=== PATIENT | male | born 1980 | race Caucasian/White ===

== ENCOUNTER 2017-06-22 12:19 | Emergency (ER) | payer MEDICARE ==
[2017-06-22] MEDS ORDERED: RX INFO: IV CONTRAST WAS GIVEN 1 EACH MISC MISCELLANE PRN (12:54)
[2017-06-22] MEDS ORDERED: SODIUM CHLORIDE 0.9% 1,000 ML IV STA ×2 (12:54)
[2017-06-22] MEDS ORDERED: PANTOPRAZOLE 40 MG/10 ML VIAL IVP STA (12:56)
[2017-06-22] MEDS ORDERED: MAG HYDROX/AL HYDROX/SIMETH 30 ML, HYOSCYAMINE ELIXIR 10 ML, CIMETIDINE HCL 300 MG, LID... PO STA ×4 (12:56)
[2017-06-22 13:31] LABS: Basophils % (A) 0 %; CH 29.7; CHCM 34.8; Eosinophils # (A) 0.1 k/uL (0-0.7); Eosinophils % (A) 2 %; HCT 40.8 % (39.0-53.0); HDW 2.79; HGB 13.8 gm/dL (13.0-17.5); Luc # (Auto) 0.13; Luc % (Auto) 2; Lymphocytes # (A) 1.5 k/uL (1.0-4.8); Lymphocytes % (A) 24 %; MCH 28.9 pg (25.0-35.0); MCHC 33.7 g/dL (31.0-37.0); MCV 85.8 fL (80.0-100.0); Mean Platelet Volume 6.9; Monocytes # (A) 0.4 k/uL (0-1.0); Monocytes % (A) 7 %; Neutrophils # (A) 3.9 k/uL (1.3-7.7); Neutrophils % (A) 64 %; RBC 4.76 m/uL (4.30-5.90); RDW 12.7 % (11.5-15.5); WBC 6.1 k/uL (3.8-10.6)
[2017-06-22 13:47] LABS: ALT 30 U/L (21-72); AST 20 U/L (17-59); Alkaline Phosphatase 60 U/L (38-126); Amylase 53 U/L (30-110); Anion Gap 9 mmol/L; Blood Urea Nitrogen 19 mg/dL (9-20); Calcium 9.5 mg/dL (8.4-10.2); Carbon Dioxide 27 mmol/L (22-30); Chloride 106 mmol/L (98-107); Glucose 65 mg/dL (74-99); Non-African American GFR(MDRD) >60 (>60 ml/min/1.73 sqM); Potassium 4.1 mmol/L (3.5-5.1); Sodium 142 mmol/L (137-145); Total Bilirubin 0.3 mg/dL (0.2-1.3); Total Protein 7.2 g/dL (6.3-8.2)
[2017-06-22 13:58] LABS: INR 1.1 (<1.2); Partial Thromboplastin Time 25.6 sec (22.0-30.0); Prothrombin Time 10.9 sec (9.0-12.0)
--- NOTE | 2017-06-22 14:17 | CT ---
EXAMINATION TYPE: CT abdomen pelvis w con DATE OF EXAM: 06/22/2017 COMPARISON: NONE HISTORY: 37-year-old male with epigastric pain. TECHNIQUE: Contiguous axial scanning of the abdomen and pelvis following administration of 100 ml Omn ipaque 300 IV contrast. Delayed images through the kidneys and coronal/sagittal reconstructions perf ormed. CT DLP: 1393 mGycm Automated exposure control for dose reduction was used. FINDINGS: The heart is normal size without pericardial effusion. Lung bases clear without pleural effusion. Small amount of focal fat along the anterior falciform ligament. Liver limits of normal in size at 17 .1 cm craniocaudal. No focal lesion seen. Portal venous system is patent. No biliary ductal dilatatio n. Prominent ingested debris within the stomach. Gallbladder, adrenal glands, kidneys, and pancreas appear within normal limits. Spleen is enlarged measuring 14.3 cm craniocaudal. Numerous nonenlarged and borderline to mildly enlarged mid mesenteric lymph nodes are present with mi ld cristina mesentery in this region, refer to axial image 32 through 37 for some call center support representative images. Lymph nodes measure up to 7 mm. No dilated small bowel, free fluid, or free air. There appears to be some fold thickening involving jejunal loops in the left upper abdomen. No dilated small bowel, free fluid, or free air. Normal appendix. Moderate stool distally in the colo n. No pericolonic inflammatory change. Mild circumference of bladder wall thickening may relate to un rabia distention. No abnormal fluid collection in the pelvis or pelvic lymphadenopathy seen. Bones: No osseous destructive process. IMPRESSION: 1. CRISTINA MESENTERY WITH NUMEROUS NONENLARGED AND BORDERLINE TO MILDLY ENLARGED MID MESENTERIC LYMPH N ODES. FINDINGS SUGGEST MESENTERIC PANNICULITIS AND PROBABLY CONCURRENT ENTERITIS GIVEN JEJUNAL FOLD T HICKENING. 2. MILD SPLENOMEGALY (14.3 CM). 3. MILD CIRCUMFERENTIAL BLADDER WALL THICKENING MAY RELATE TO UNDERDISTENTION. CORRELATE TO EXCLUDE C YSTITIS.
[2017-06-22 15:13] LABS: Appearance,Urine Clear (Clear); Bilirubin,Urine Negative (Negative); Glucose,Urine (UA) Negative (Negative); Ketones,Urine Negative (Negative); Leukocyte Esterase,Urine Negative (Negative); Nitrite,Urine Negative (Negative); Protein,Urine Negative (Negative); UA Billing (MACRO vs. MICRO) CHEM
[2017-06-22] MEDS ORDERED: methylPREDNISolone SOD SUCCI 125 MG/2 ML VIAL IV STA (15:35)
--- NOTE | 2017-06-22 15:41 | ED ---
Abdominal Pain HPI - General Chief Complaint: Abdominal Pain Stated Complaint: Abd Pain Time Seen by Provider: 06/22/17 12:50 Source: patient Mode of arrival: ambulatory Limitations: no limitations - History of Present Illness Initial Comments: This 37-year-old white male presents with a complaint of some diffuse abdominal pain. This is been present for the past several weeks. He denies any other symptomatology such as fever, chills, nausea, vomiting, diarrhea, or constipation. He states that it is been fairly persistent. He denies any previous similar incidents. He denies any urinary symptomatology such as frequency, urgency, or dysuria. He denies any other complaints or modifying factors. He denies any abdominal bloating. - Related Data Previous Rx's Medication Instructions Recorded predniSONE 20 mg PO BID #10 tab 06/22/17 traMADol HCl [Ultram] 50 - 100 mg PO Q6H PRN #15 tab 06/22/17 Allergies Allergy/AdvReac Type Severity Reaction Status Date / Time No Known Allergies Allergy Verified 06/22/17 12:43 Review of Systems ROS Statement: Those systems with pertinent positive or pertinent negative responses have been documented in the HPI. ROS Other: All systems not noted in ROS Statement are negative. Past Medical History Past Medical History: No Reported History History of Any Multi-Drug Resistant Organisms: None Reported Past Surgical History: No Surgical Hx Reported Past Psychological History: No Psychological Hx Reported Smoking Status: Never smoker Past Alcohol Use History: None Reported Past Drug Use History: None Reported General Exam - General Exam Comments Initial Comments: GENERAL: The patient is well nourished and well hydrated. VITAL SIGNS: Heart rate, blood pressure, respiratory rate reviewed as recorded in nurse's notes. EYES: Pupils are round and reactive. Extraocular movements are intact. No conjunctival / lid redness or swelling. ENT: No external evidence of injury, swelling, or ecchymosis. Airway is patent. Throat is clear. NECK: Nontender. No swelling or evidence of injury. No subcutaneous emphysema. Trachea is midline. No thyroid mass. HEART: Regular rate and rhythm. Good peripheral pulses. LUNGS/CHEST: Breath sounds clear and equal bilaterally. No rales, rhonchi, or wheezes. No ecchymosis, subcutaneous emphysema, or tenderness. ABDOMEN: there is mild diffuse abdominal tenderness.No palpable masses or organomegaly. No peritoneal signs. No abdominal wall swelling or ecchymosis. EXTREMITIES: No extremity tenderness. Normal muscle tone and function. No thoracolumbar tenderness. NEUROLOGIC: Sensation is grossly intact. Cranial nerve exam reveals face is symmetrical, tongue is midline, speech is clear. SKIN: No abrasions or ecchymosis is noted. No induration or masses noted. PSYCHIATRIC: Alert and oriented. Appropriate behavior and judgment. Limitations: no limitations Course Vital Signs 06/22/17 06/22/17 06/22/17 12:29 13:28 14:52 Temperature 97.4 F L Pulse Rate 80 77 63 Respiratory 16 16 16 Rate Blood Pressure 122/78 113/68 102/63 O2 Sat by Pulse 100 100 98 Oximetry Medical Decision Making - Medical Decision Making the patient was seen and examined. All diagnostics were reviewed. The laboratory overall is fairly unremarkable. The computed tomography scan of the abdomen and pelvis shows evidence of mesenteric panniculitis. There is a slight contracted bladder and is difficult to ascertain if there is any blood or wall thickening and radiologist recommends correlation with urinalysis. The urinalysis does not show any evidence of infection. Overall, it is felt as though he likely does have mesenteric panniculitis. Is given a dose of Solu- Medrol intravenously. He also was given a GI cocktail. He is in no significant distress upon recheck. He also received some Protonix. This felt as though is stable for discharge. Return parameters are discussed and will have him follow-up with surgery for further evaluation as well. - Lab Data Result diagrams: 06/22/17 13:19 06/22/17 13:19 Lab Results 06/22/17 06/22/17 06/22/17 Range/Units 13:19 13:19 13:19 WBC 6.1 (3.8-10.6) k/uL RBC 4.76 (4.30-5.90) m/uL Hgb 13.8 (13.0-17.5) gm/dL Hct 40.8 (39.0-53.0) % MCV 85.8 (80.0-100.0) fL MCH 28.9 (25.0-35.0) pg MCHC 33.7 (31.0-37.0) g/dL RDW 12.7 (11.5-15.5) % Plt Count 325 (150-450) k/uL Neutrophils % 64 % Lymphocytes % 24 % Monocytes % 7 % Eosinophils % 2 % Basophils % 0 % Neutrophils # 3.9 (1.3-7.7) k/uL Lymphocytes # 1.5 (1.0-4.8) k/uL Monocytes # 0.4 (0-1.0) k/uL Eosinophils # 0.1 (0-0.7) k/uL Basophils # 0.0 (0-0.2) k/uL PT 10.9 (9.0-12.0) sec INR 1.1 (<1.2) APTT 25.6 (22.0-30.0) sec Sodium 142 (137-145) mmol/L Potassium 4.1 (3.5-5.1) mmol/L Chloride 106 (98-107) mmol/L Carbon Dioxide 27 (22-30) mmol/L Anion Gap 9 mmol/L BUN 19 (9-20) mg/dL Creatinine 1.04 (0.66-1.25) mg/dL Est GFR (MDRD) Af Amer >60 (>60 ml/min/1.73 sqM) Est GFR (MDRD) Non-Af >60 (>60 ml/min/1.73 sqM) Glucose 65 L (74-99) mg/dL Calcium 9.5 (8.4-10.2) mg/dL Total Bilirubin 0.3 (0.2-1.3) mg/dL AST 20 (17-59) U/L ALT 30 (21-72) U/L Alkaline Phosphatase 60 (38-126) U/L Total Protein 7.2 (6.3-8.2) g/dL Albumin 4.2 (3.5-5.0) g/dL Amylase 53 (30-110) U/L Lipase 224 (23-300) U/L Urine Color Urine Appearance (Clear) Urine pH (5.0-8.0) Ur Specific [place] (1.001-1.035) Urine Protein (Negative) Urine Glucose (UA) (Negative) Urine Ketones (Negative) Urine Blood (Negative) Urine Nitrite (Negative) Urine Bilirubin (Negative) Urine Urobilinogen (<2.0) mg/dL Ur Leukocyte Esterase (Negative) 06/22/17 Range/Units 15:05 WBC (3.8-10.6) k/uL RBC (4.30-5.90) m/uL Hgb (13.0-17.5) gm/dL Hct (39.0-53.0) % MCV (80.0-100.0) fL MCH (25.0-35.0) pg MCHC (31.0-37.0) g/dL RDW (11.5-15.5) % Plt Count (150-450) k/uL Neutrophils % % Lymphocytes % % Monocytes % % Eosinophils % % Basophils % % Neutrophils # (1.3-7.7) k/uL Lymphocytes # (1.0-4.8) k/uL Monocytes # (0-1.0) k/uL Eosinophils # (0-0.7) k/uL Basophils # (0-0.2) k/uL PT (9.0-12.0) sec INR (<1.2) APTT (22.0-30.0) sec Sodium (137-145) mmol/L Potassium (3.5-5.1) mmol/L Chloride (98-107) mmol/L Carbon Dioxide (22-30) mmol/L Anion Gap mmol/L BUN (9-20) mg/dL Creatinine (0.66-1.25) mg/dL Est GFR (MDRD) Af Amer (>60 ml/min/1.73 sqM) Est GFR (MDRD) Non-Af (>60 ml/min/1.73 sqM) Glucose (74-99) mg/dL Calcium (8.4-10.2) mg/dL Total Bilirubin (0.2-1.3) mg/dL AST (17-59) U/L ALT (21-72) U/L Alkaline Phosphatase (38-126) U/L Total Protein (6.3-8.2) g/dL Albumin (3.5-5.0) g/dL Amylase (30-110) U/L Lipase (23-300) U/L Urine Color Yellow Urine Appearance Clear (Clear) Urine pH 6.0 (5.0-8.0) Ur Specific [place] 1.020 (1.001-1.035) Urine Protein Negative (Negative) Urine Glucose (UA) Negative (Negative) Urine Ketones Negative (Negative) Urine Blood Negative (Negative) Urine Nitrite Negative (Negative) Urine Bilirubin Negative (Negative) Urine Urobilinogen 2.0 (<2.0) mg/dL Ur Leukocyte Esterase Negative (Negative) Disposition Clinical Impression: Abdominal pain, Mesenteric panniculitis Disposition: HOME SELF-CARE Condition: Good Instructions: Abdominal Pain (ED) Additional Instructions: we saw you today for some abdominal pain which likely is due to mesenteric panniculitis. Please follow-up with the surgeon for further evaluation of this condition. Prescriptions: predniSONE 20 mg PO BID #10 tab traMADol HCl [Ultram] 50 - 100 mg PO Q6H PRN #15 tab PRN Reason: Pain Referrals: Joseph Connolly MD [Primary Care Provider] - 06/25/17 Jakob Ruiz DO [Doctor of Osteopathic Medicine] - 06/25/17 Time of Disposition: 15:40
[2017-06-22 15:49] VITALS: BP 106/67; PULSE 64; RESP 17; TEMP 91.7
== END 2017-06-22 15:56 | disposition home or self-care (01) ==
LOC: EC 12:19
DX: K65.4 Sclerosing mesenteritis (principal); Z53.29 Procedure and treatment not carried out because of patient's decision for other reasons
CPT/HCPCS: 36415; 80053; 82150; 83690; 85025; 85610; 85730; 81003; 74177; 99284; 96374; 96361; Q9967; C9113

== ENCOUNTER → 2017-11-23 | Outpatient (CLI) | payer MEDICARE ==
--- NOTE | 2017-11-23 13:33 | XR ---
Right knee HISTORY: Pain and swelling 3 views of the right knee Bone mineralization, joint spaces and alignment are maintained. No fracture or dislocation. Suprapate llar increased density is minimal. IMPRESSION: There may be minimal joint effusion.
== END | disposition home or self-care (01) ==
LOC: RADXRMAIN 11:33
PROVIDERS: ATTEND Family Medicine
DX: M25.561 Pain in right knee (principal)

== ENCOUNTER 2018-11-19 20:52 | Emergency (ER) | payer MEDICARE ==
[2018-11-19 20:57] VITALS: BP 126/78; RESP 20; TEMP 98.8
[2018-11-19] MEDS ORDERED: IPRATROPIUM-ALBUTEROL 3 ML NEB INHALATION STA (21:12)
--- NOTE | 2018-11-19 21:29 | ED ---
General Adult HPI - General Chief complaint: Upper Respiratory Infection Stated complaint: Cough Time Seen by Provider: 11/19/18 20:58 Source: patient, family, RN notes reviewed Mode of arrival: ambulatory Limitations: no limitations - History of Present Illness Initial comments: 38-year-old male presents to the emergency department for a chief complaint of cough 3 weeks. Patient states that when this started he had a fever with body aches cough and congestion. Patient states the body aches and fever have resolved however patient still has a dry cough and is congested. Patient states he only feels short of breath when he gets into a coughing fit. Patient denies chest pain. Patient denies any history of blood clots or recent travel. No recent surgeries. No recent fevers. Patient denies smoking history. Patient has no other complaints at this time including chest pain, abdominal pain, nausea or vomiting, headache, or visual changes. - Related Data Previous Rx's Medication Instructions Recorded predniSONE 20 mg PO BID #10 tab 06/22/17 traMADol HCl [Ultram] 50 - 100 mg PO Q6H PRN #15 tab 06/22/17 Albuterol Inhaler [Ventolin Hfa 1 - 2 puff INHALATION Q6HR PRN #1 11/19/18 Inhaler] inhaler Azithromycin [Zithromax Z-pack] 250 mg PO DIRECTED #6 tab 11/19/18 Benzonatate [Tessalon Perles] 200 mg PO Q8H PRN #20 capsule 11/19/18 predniSONE 50 mg PO DAILY #5 tablet 11/19/18 Allergies Allergy/AdvReac Type Severity Reaction Status Date / Time No Known Allergies Allergy Verified 11/19/18 20:57 Review of Systems ROS Statement: Those systems with pertinent positive or pertinent negative responses have been documented in the HPI. ROS Other: All systems not noted in ROS Statement are negative. Past Medical History Past Medical History: No Reported History History of Any Multi-Drug Resistant Organisms: None Reported Past Surgical History: Hernia Repair Past Psychological History: No Psychological Hx Reported Smoking Status: Never smoker Past Alcohol Use History: None Reported Past Drug Use History: None Reported General Exam Limitations: no limitations General appearance: alert, in no apparent distress Head exam: Present: atraumatic, normocephalic, normal inspection Eye exam: Present: normal appearance, PERRL, EOMI. Absent: scleral icterus, conjunctival injection, periorbital swelling ENT exam: Present: normal exam, normal oropharynx, mucous membranes moist, TM's normal bilaterally, normal external ear exam, other (mild nasal congestion noted) Neck exam: Present: normal inspection. Absent: tenderness, meningismus, lymphadenopathy Respiratory exam: Present: normal lung sounds bilaterally, chest wall tenderness (minimal chest wall tenderness). Absent: respiratory distress (patient laying comfortably in bed, no evidence of distress whatsoever), wheezes (minimal wheeze present), rales, rhonchi, stridor Cardiovascular Exam: Present: regular rate, normal rhythm, normal heart sounds. Absent: systolic murmur, diastolic murmur, rubs, gallop, clicks GI/Abdominal exam: Present: soft, normal bowel sounds. Absent: distended, tenderness, guarding, rebound, rigid Neurological exam: Present: alert, oriented X3, CN II-XII intact Psychiatric exam: Present: normal affect, normal mood Course Vital Signs 11/19/18 11/19/18 11/19/18 20:54 21:27 21:36 Temperature 98.8 F Pulse Rate 92 90 91 Respiratory 20 Rate Blood Pressure 126/78 O2 Sat by Pulse 100 Oximetry Medical Decision Making - Medical Decision Making 38-year-old male presents to the emergency department for a chief complaint of cough. This has been ongoing for 3 weeks. Started with fever chills body aches congestion and cough. Patient states now he just has congestion and cough and fevers and body aches have resolved. Patient states he is a never smoker. Vitals are stable. Patient is well-appearing on exam. Patient did receive a breathing treatment, feeling significantly improved. Chest x-ray negative for acute process. Influenza is negative. At this time patient likely has a bronchitis. Patient will be treated with a Z-Milan as well as steroids and albuterol inhaler as the breathing treatment did help him significantly. He will also be given Tessalon Perles. He will follow up with primary care. He'll return here if he has any worsening symptoms. - Lab Data Lab Results 11/19/18 Range/Units 21:21 Influenza Type A RNA Not Detected (Not Detectd) Influenza Type B (PCR) Not Detected (Not Detectd) Disposition Clinical Impression: Bronchitis Disposition: HOME SELF-CARE Condition: Good Instructions (If sedation given, give patient instructions): Acute Bronchitis (ED) Additional Instructions: Please take antibiotic and steroid as directed. Please use Tessalon Perles as needed for cough. Use inhaler as well as needed. You may also buy over-the-c ounter cough medicine. Follow up with primary care in 1-2 days. Return here if you have any worsening symptoms. Prescriptions: predniSONE 50 mg PO DAILY #5 tablet Benzonatate [Tessalon Perles] 200 mg PO Q8H PRN #20 capsule PRN Reason: Cough Albuterol Inhaler [Ventolin Hfa Inhaler] 1 - 2 puff INHALATION Q6HR PRN #1 inhaler PRN Reason: Cough Azithromycin [Zithromax Z-pack] 250 mg PO DIRECTED #6 tab Is patient prescribed a controlled substance at d/c from ED?: No Referrals: Vinayak Salcido MD [Primary Care Provider] - 1-2 days Time of Disposition: 22:40
[2018-11-19 21:36] VITALS: PULSE 91
--- NOTE | 2018-11-19 22:03 | XR ---
EXAMINATION TYPE: XR chest 2V DATE OF EXAM: 11/19/2018 COMPARISON: NONE HISTORY: Respiratory infection TECHNIQUE: Frontal and lateral views of the chest are obtained. FINDINGS: Heart and mediastinum are normal. Lungs are clear. Diaphragm is normal. Bony thorax appear s normal. IMPRESSION: Normal chest
== END 2018-11-19 22:57 | disposition home or self-care (01) ==
LOC: EC 20:52
DX: J40 Bronchitis, not specified as acute or chronic (principal)
CPT/HCPCS: 71046; 87502; 94640; 99284

== ENCOUNTER 2019-01-28 20:57 | Emergency (ER) | payer MEDICARE ==
[2019-01-28 21:06] VITALS: TEMP 97.7
[2019-01-28] MEDS ORDERED: SODIUM CHLORIDE 0.9% 1,000 ML IV STA (21:08)
[2019-01-28] MEDS ORDERED: IPRATROPIUM-ALBUTEROL 3 ML NEB INHALATION STA (21:08)
--- NOTE | 2019-01-28 21:23 | ED ---
SOB HPI - General Chief Complaint: Shortness of Breath Stated Complaint: JHONNY/Fall Time Seen by Provider: 01/28/19 21:07 Source: patient, RN notes reviewed, old records reviewed Mode of arrival: ambulatory Limitations: no limitations - History of Present Illness Initial Comments: This is a 38-year-old male the ER for evaluation resents today for evaluation status post fall fall with rib pain left-sided rib pain more also some right- sided rib pain. Worsening takes a deep breath worse when he coughs. Shortness of breath is recently progressed over the last 2 days and has had increasing cough or congestion. No fevers. Patient denies any other complaints MD Complaint: shortness of breath, cough, pain with inspiration (Ribs rib pain is worse) -: days(s) Severity: mild Severity scale (1-10): 2 Quality: aching, sharp (When he takes a deep breath or coughs) Consistency: intermittent Improves With: nothing Worsens With: nothing Context: trauma/injury Associated Symptoms: chest pain, pain with inspiration, sputum production Treatments Prior to Arrival: none - Related Data Previous Rx's Medication Instructions Recorded Albuterol Sulfate [Proair Hfa] 1 - 2 puff INHALATION Q4H PRN #1 01/28/19 inhaler Azithromycin [Zithromax Z-pack] 0 mg PO DIRECTED #1 pack 01/28/19 predniSONE 50 mg PO DAILY #5 tab 01/28/19 Allergies Allergy/AdvReac Type Severity Reaction Status Date / Time No Known Allergies Allergy Verified 01/28/19 21:24 Review of Systems ROS Statement: Those systems with pertinent positive or pertinent negative responses have been documented in the HPI. ROS Other: All systems not noted in ROS Statement are negative. Past Medical History Past Medical History: No Reported History History of Any Multi-Drug Resistant Organisms: None Reported Past Surgical History: Hernia Repair Past Psychological History: No Psychological Hx Reported Smoking Status: Never smoker Past Alcohol Use History: None Reported Past Drug Use History: None Reported General Exam Limitations: no limitations General appearance: alert, in no apparent distress Head exam: Present: atraumatic, normocephalic, normal inspection Eye exam: Present: normal appearance, PERRL, EOMI. Absent: scleral icterus, conjunctival injection, periorbital swelling ENT exam: Present: normal exam, mucous membranes moist Neck exam: Present: normal inspection. Absent: tenderness, meningismus, lymphadenopathy Respiratory exam: Present: normal lung sounds bilaterally. Absent: respiratory distress, wheezes, rales, rhonchi, stridor Cardiovascular Exam: Present: regular rate, normal rhythm, normal heart sounds. Absent: systolic murmur, diastolic murmur, rubs, gallop, clicks GI/Abdominal exam: Present: soft, normal bowel sounds. Absent: distended, tenderness, guarding, rebound, rigid Extremities exam: Present: normal inspection, full ROM, normal capillary refill. Absent: tenderness, pedal edema, joint swelling, calf tenderness Back exam: Present: normal inspection Neurological exam: Present: alert, oriented X3, CN II-XII intact Psychiatric exam: Present: normal affect, normal mood Skin exam: Present: warm, dry, intact, normal color. Absent: rash Course Vital Signs 01/28/19 01/28/19 01/28/19 21:01 21:06 21:39 Temperature 97.7 F Pulse Rate 77 73 Respiratory 20 18 16 Rate Blood Pressure 136/82 O2 Sat by Pulse 96 Oximetry 01/28/19 01/28/19 01/28/19 21:48 22:41 23:02 Temperature Pulse Rate 71 74 Respiratory 16 18 18 Rate Blood Pressure 108/67 O2 Sat by Pulse 97 Oximetry Medical Decision Making - Medical Decision Making 38 male to ER status post fall and rib pain. Since patient is a difficult breathing. presents for persistent shortness of breath. CT is negative here in the ER. Improvement with breathing treatments. Patient can be discharged home - Lab Data Result diagrams: 01/28/19 21:30 01/28/19 21:30 Lab Results 01/28/19 01/28/19 01/28/19 Range/Units 21:30 21:30 21:30 WBC 6.3 (3.8-10.6) k/uL RBC 4.46 (4.30-5.90) m/uL Hgb 12.6 L (13.0-17.5) gm/dL Hct 37.8 L (39.0-53.0) % MCV 84.7 (80.0-100.0) fL MCH 28.3 (25.0-35.0) pg MCHC 33.4 (31.0-37.0) g/dL RDW 13.5 (11.5-15.5) % Plt Count 289 (150-450) k/uL Neutrophils % 66 % Lymphocytes % 21 % Monocytes % 8 % Eosinophils % 2 % Basophils % 1 % Neutrophils # 4.2 (1.3-7.7) k/uL Lymphocytes # 1.3 (1.0-4.8) k/uL Monocytes # 0.5 (0-1.0) k/uL Eosinophils # 0.1 (0-0.7) k/uL Basophils # 0.0 (0-0.2) k/uL PT 10.7 (9.0-12.0) sec INR 1.0 (<1.2) APTT 25.0 (22.0-30.0) sec D-Dimer 0.33 (<0.60) mg/L FEU Sodium 142 (137-145) mmol/L Potassium 3.9 (3.5-5.1) mmol/L Chloride 107 (98-107) mmol/L Carbon Dioxide 26 (22-30) mmol/L Anion Gap 9 mmol/L BUN 20 (9-20) mg/dL Creatinine 1.06 (0.66-1.25) mg/dL Est GFR (CKD-EPI)AfAm >90 (>60 ml/min/1.73 sqM) Est GFR (CKD-EPI)NonAf 90 (>60 ml/min/1.73 sqM) Glucose 88 (74-99) mg/dL Calcium 9.4 (8.4-10.2) mg/dL Magnesium 2.1 (1.6-2.3) mg/dL Total Bilirubin 0.4 (0.2-1.3) mg/dL AST 18 (17-59) U/L ALT 21 (21-72) U/L Alkaline Phosphatase 58 (38-126) U/L Troponin I (0.000-0.034) ng/mL NT-Pro-B Natriuret Pep pg/mL Total Protein 7.0 (6.3-8.2) g/dL Albumin 4.1 (3.5-5.0) g/dL 01/28/19 01/28/19 Range/Units 21:30 21:30 WBC (3.8-10.6) k/uL RBC (4.30-5.90) m/uL Hgb (13.0-17.5) gm/dL Hct (39.0-53.0) % MCV (80.0-100.0) fL MCH (25.0-35.0) pg MCHC (31.0-37.0) g/dL RDW (11.5-15.5) % Plt Count (150-450) k/uL Neutrophils % % Lymphocytes % % Monocytes % % Eosinophils % % Basophils % % Neutrophils # (1.3-7.7) k/uL Lymphocytes # (1.0-4.8) k/uL Monocytes # (0-1.0) k/uL Eosinophils # (0-0.7) k/uL Basophils # (0-0.2) k/uL PT (9.0-12.0) sec INR (<1.2) APTT (22.0-30.0) sec D-Dimer (<0.60) mg/L FEU Sodium (137-145) mmol/L Potassium (3.5-5.1) mmol/L Chloride (98-107) mmol/L Carbon Dioxide (22-30) mmol/L Anion Gap mmol/L BUN (9-20) mg/dL Creatinine (0.66-1.25) mg/dL Est GFR (CKD-EPI)AfAm (>60 ml/min/1.73 sqM) Est GFR (CKD-EPI)NonAf (>60 ml/min/1.73 sqM) Glucose (74-99) mg/dL Calcium (8.4-10.2) mg/dL Magnesium (1.6-2.3) mg/dL Total Bilirubin (0.2-1.3) mg/dL AST (17-59) U/L ALT (21-72) U/L Alkaline Phosphatase (38-126) U/L Troponin I <0.012 (0.000-0.034) ng/mL NT-Pro-B Natriuret Pep 18 pg/mL Total Protein (6.3-8.2) g/dL Albumin (3.5-5.0) g/dL - EKG Data -: EKG Interpreted by Me (EKG shows sinus at [facility] sec, SD 146, QRS 100, QTc 470) - Radiology Data Radiology results: report reviewed (CTA chest is negative for acute disease), image reviewed Disposition Clinical Impression: Rib contusion, Acute bronchitis Disposition: HOME SELF-CARE Instructions (If sedation given, give patient instructions): Acute Bronchitis (ED) Prescriptions: predniSONE 50 mg PO DAILY #5 tab Albuterol Sulfate [Proair Hfa] 1 - 2 puff INHALATION Q4H PRN #1 inhaler PRN Reason: Shortness Of Breath Azithromycin [Zithromax Z-pack] 0 mg PO DIRECTED #1 pack Is patient prescribed a controlled substance at d/c from ED?: No Referrals: Vinayak Salcido MD [Primary Care Provider] - 1-2 days
[2019-01-28 21:49] LABS: Basophils % (A) 1 %; Eosinophils # (A) 0.1 k/uL (0-0.7); Eosinophils % (A) 2 %; HCT 37.8 % (39.0-53.0); HGB 12.6 gm/dL (13.0-17.5); Lymphocytes # (A) 1.3 k/uL (1.0-4.8); Lymphocytes % (A) 21 %; MCH 28.3 pg (25.0-35.0); MCHC 33.4 g/dL (31.0-37.0); MCV 84.7 fL (80.0-100.0); Mean Platelet Volume 7.9; Monocytes # (A) 0.5 k/uL (0-1.0); Monocytes % (A) 8 %; Neutrophils # (A) 4.2 k/uL (1.3-7.7); Neutrophils % (A) 66 %; Platelet Count 289 k/uL (150-450); RBC 4.46 m/uL (4.30-5.90); RDW 13.5 % (11.5-15.5); WBC 6.3 k/uL (3.8-10.6)
[2019-01-28 21:59] LABS: ALT 21 U/L (21-72); AST 18 U/L (17-59); African American GFR (CKD) >90 (>60 ml/min/1.73 sqM); Albumin 4.1 g/dL (3.5-5.0); Alkaline Phosphatase 58 U/L (38-126); Anion Gap 9 mmol/L; Blood Urea Nitrogen 20 mg/dL (9-20); Calcium 9.4 mg/dL (8.4-10.2); Carbon Dioxide 26 mmol/L (22-30); Chloride 107 mmol/L (98-107); Glucose 88 mg/dL (74-99); Magnesium 2.1 mg/dL (1.6-2.3); Potassium 3.9 mmol/L (3.5-5.1); Sodium 142 mmol/L (137-145); Total Bilirubin 0.4 mg/dL (0.2-1.3)
[2019-01-28 22:03] LABS: D-Dimer 0.33 mg/L FEU (<0.60); Prothrombin Time 10.7 sec (9.0-12.0)
--- NOTE | 2019-01-28 22:23 | CT ---
EXAM: CT Angiography Chest With Intravenous Contrast CLINICAL HISTORY: Pain TECHNIQUE: Axial computed tomographic angiography images of the chest with intravenous contrast using pulmonary embolism protocol. CTDI is 0.085, 0. 085, 1.5, 1.5, 9.3 mGy and DLP is 355 mGy-cm. This CT exam was performed using one or more of the following dose reduction techniques: automated exposure control, adjustment of the mA and/or kV according to patient size, and/or use of iterative reconstruction technique. MIP reconstructed images were created and reviewed. COMPARISON: No relevant prior studies available. FINDINGS: Pulmonary arteries: No evidence of pulmonary embolus. Aorta: No acute findings. No thoracic aortic aneurysm. Lungs: Patchy ground glass opacities within the upper lobes and right lower lobe. Findings are suggestive of inflammatory or infectious process. Pleural space: Unremarkable. No significant effusion. No pneumothorax. Heart: Unremarkable. No cardiomegaly. No significant pericardial effusion. No evidence of RV dysfunction. Bones/joints: No acute fracture. No dislocation. Soft tissues: Unremarkable. Lymph nodes: Unremarkable. No enlarged lymph nodes. Spleen: Question borderline splenomegaly. IMPRESSION: 1. No evidence of pulmonary embolus. 2. Patchy ground glass opacities within the upper lobes and right lower lobe. Findings are suggestive of inflammatory or infectious process. 3. Question borderline splenomegaly.
[2019-01-28 22:44] VITALS: BP 108/67; PULSE 74; RESP 18
[2019-01-28] MEDS ORDERED: DEXAMETHASONE SOD PHOSPHATE 10 MG/ML 1 ML VIAL IV STA (22:46)
[2019-01-28] MEDS ORDERED: AZITHROMYCIN 500 MG TAB PO STA (22:47)
--- NOTE | 2019-01-30 07:21 | CDI ---
Documentation Clarification OP Dear Ramez JUÁREZ, DO Please do addendum to ED report for missing HPI and Physical examination. Thank you, Rochelle Duggan Machining And Assembly Supervisor If you have any questions, please contact Digital Editor at [phone] [facility]
== END 2019-01-28 23:03 | disposition home or self-care (01) ==
LOC: EC 20:57
DX: S20.219A Contusion of unspecified front wall of thorax, initial encounter (principal); J20.9 Acute bronchitis, unspecified; W10.9XXA Fall (on) (from) unspecified stairs and steps, initial encounter
CPT/HCPCS: 99285; 96374; 96361; 36415; 94640; 93005; 85379; 83880; 80053; 83735; 84484; 85025; 85610; 85730; 71275; J1100; Q9967

== ENCOUNTER 2019-02-26 01:19 | Emergency (ER) | payer MEDICARE ==
[2019-02-26 01:30] VITALS: BP 130/90; PULSE 65; RESP 20; TEMP 97.7
[2019-02-26] MEDS ORDERED: PROPARACAINE 0.5% OPHTH DROPS 15 ML BTL RIGHT EYE STA (01:33)
[2019-02-26] MEDS ORDERED: TOBRAMYCIN 0.3% OPHTH OINT 3.5 GM TUBE RIGHT EYE STA (01:42)
--- NOTE | 2019-02-26 01:44 | ED ---
Eye Problem HPI - General Chief complaint: Eye Problems Stated complaint: eye problem Time Seen by Provider: 02/26/19 01:33 Source: patient, family Mode of arrival: ambulatory Limitations: no limitations - History of Present Illness Initial comments: 38-year-old male patient presents to the emergency department today for evaluation of right eye discomfort. Patient states he was sitting outside at a fire when he felt something go into his eye. Patient states that he attempted to flush the eye. States he took a shower. States nothing has been working. Patient states he still feels something is in there. Denies any blurred or double vision from this. Denies any drainage from the eye. Denies any fever, chills, or headache. Does not wear contacts or glasses. Patient denies any recent rash, fever, chills, shortness breath, chest pain, abdominal pain, nausea, vomiting, diarrhea, constipation, back pain, numbness, tingling, dizziness, weakness, hematuria, dysuria, urinary urgency, urinary frequency, or any other complaints. - Related Data Previous Rx's Medication Instructions Recorded Albuterol Sulfate [Proair Hfa] 1 - 2 puff INHALATION Q4H PRN #1 01/28/19 inhaler Azithromycin [Zithromax Z-pack] 0 mg PO DIRECTED #1 pack 01/28/19 predniSONE 50 mg PO DAILY #5 tab 01/28/19 Allergies Allergy/AdvReac Type Severity Reaction Status Date / Time No Known Allergies Allergy Verified 02/26/19 01:30 Review of Systems ROS Statement: Those systems with pertinent positive or pertinent negative responses have been documented in the HPI. ROS Other: All systems not noted in ROS Statement are negative. Past Medical History Past Medical History: No Reported History History of Any Multi-Drug Resistant Organisms: None Reported Past Surgical History: Hernia Repair Past Psychological History: No Psychological Hx Reported Smoking Status: Never smoker Past Alcohol Use History: None Reported Past Drug Use History: None Reported General Exam Limitations: no limitations General appearance: alert, in no apparent distress, other (This is a well- developed, well-nourished adult male patient in no acute distress. Vital signs upon presentation are temperature 97.7F, pulse 65, respirations 20, blood pressure 130/90, pulse ox 99% on room air.) Eye exam: Present: PERRL, EOMI, conjunctival injection (Mild right-sided conjunctival injection), other (Fluorescein stain with Wood's lamp examination was performed and showed no evidence for corneal abrasion or conjunctival abrasion. Eye was thoroughly inspected and showed no evidence for foreign body. Lids were everted.). Absent: normal appearance, scleral icterus, periorbital swelling ENT exam: Present: normal exam, normal oropharynx, mucous membranes moist Respiratory exam: Present: normal lung sounds bilaterally. Absent: respiratory distress, wheezes, rales, rhonchi, stridor Cardiovascular Exam: Present: regular rate, normal rhythm, normal heart sounds. Absent: systolic murmur, diastolic murmur, rubs, gallop, clicks Neurological exam: Present: alert, oriented X3, CN II-XII intact Psychiatric exam: Present: normal affect, normal mood Skin exam: Present: warm, dry, intact, normal color. Absent: rash Course Vital Signs 02/26/19 01:25 Temperature 97.7 F Pulse Rate 65 Respiratory 20 Rate Blood Pressure 130/90 O2 Sat by Pulse 99 Oximetry Medical Decision Making - Medical Decision Making Of right eye discomfort and burning. Physical examination did reveal mild conjunctival injection. Fluorescein stain with Wood's lamp examination was performed and showed no evidence for conjunctival or corneal abrasion. Eye was thoroughly inspected and showed no evidence for foreign body. It flushed the eye with normal saline. Patient did have complete resolution of symptoms with instillation of proparacaine. Patient will be given tobramycin ointment to apply 4 times daily. He is instructed to follow-up with assistant strength coach for recheck Wednesday if symptoms persist. Is instructed to follow-up with his primary care physician for recheck in 1-2 days. Return parameters were discussed in detail. He verbalizes understanding and agrees with this plan. Disposition Clinical Impression: Foreign body of right eye Disposition: HOME SELF-CARE Condition: Good Instructions (If sedation given, give patient instructions): Tobramycin (Into the eye), Eye Foreign Body (ED) Additional Instructions: Use tobramycin ointment 4 times daily while awake. Follow-up with the assistant strength coach on Wednesday for symptoms are not improved. Return to the emergency department immediately for any new, worsening, or concerning symptoms. Is patient prescribed a controlled substance at d/c from ED?: No Referrals: Vinayak Salcido MD [Primary Care Provider] - 1-2 days Jyoti Iglesias MD [STAFF PHYSICIAN] - 1-2 days Time of Disposition: 01:43
== END 2019-02-26 01:54 | disposition home or self-care (01) ==
LOC: EC 01:19
DX: T15.91XA Foreign body on external eye, part unspecified, right eye, initial encounter (principal)
CPT/HCPCS: 99283

== ENCOUNTER 2019-02-26 08:04 | Emergency (ER) | payer MEDICARE ==
[2019-02-26 08:15] VITALS: TEMP 97
[2019-02-26] MEDS ORDERED: PROPARACAINE 0.5% OPHTH DROPS 15 ML BTL RIGHT EYE STA (08:18)
--- NOTE | 2019-02-26 11:11 | ED ---
General Adult HPI - General Chief complaint: Eye Problems Stated complaint: Eye Problems Time Seen by Provider: 02/26/19 08:15 Source: patient, RN notes reviewed, old records reviewed Mode of arrival: ambulatory Limitations: no limitations - History of Present Illness Initial comments: 38-year-old male patient, no pertinent past medical history presents to ED with chief complaint of right eye pain. Patient reports that yesterday he was of anxiety and felt something scratch. Patient reports that he has had a stinging pain in the lateral aspect of his right eye. Pt reports that he has been rubbing his eyes. Patient is not a contact lens user, reports that he was seen in this facility yesterday and placed on tobramycin eyedrops. Patient states that his vision is at baseline. Patient arrived in the 60s still expressing pain. Patient denies any other complaints at this time. Last tetanus shot last year. Systemic: Pt denies fatigue, fever/chills, rash. Pt denies weakness, night sweats, weight loss. Neuro: Pt denies headache, visual disturbances, syncope or pre-syncope. HEENT: Pt denies otalgia, rhinorrhea, pharyngitis or notable lymphadenopathy. Cardiopulmonary: Pt denies chest pain, SOB, heart palpitations, dyspnea on exertion. Abdominal/GI: Pt denies abdominal pain, n/v/d. : Pt denies dysuria, burning w/ urination, frequency/urgency. Denies new onset urinary or bowel incontinence. MSK: Pt denies myalgia, loss of strength or function in extremities. Neuro: Pt denies new onset weakness, paresthesias. - Related Data Previous Rx's Medication Instructions Recorded Albuterol Sulfate [Proair Hfa] 1 - 2 puff INHALATION Q4H PRN #1 01/28/19 inhaler Azithromycin [Zithromax Z-pack] 0 mg PO DIRECTED #1 pack 01/28/19 predniSONE 50 mg PO DAILY #5 tab 01/28/19 Allergies Allergy/AdvReac Type Severity Reaction Status Date / Time No Known Allergies Allergy Verified 02/26/19 08:15 Review of Systems ROS Statement: Those systems with pertinent positive or pertinent negative responses have been documented in the HPI. ROS Other: All systems not noted in ROS Statement are negative. Past Medical History Past Medical History: No Reported History History of Any Multi-Drug Resistant Organisms: None Reported Past Surgical History: Hernia Repair Past Psychological History: No Psychological Hx Reported Smoking Status: Never smoker Past Alcohol Use History: None Reported Past Drug Use History: None Reported General Exam - General Exam Comments Initial Comments: Constitutional: NAD, AOX3, Pt has pleasant affect. HEENT: NC/AT, trachea midline, neck supple, no lymphadenopathy. Posterior pharynx non erythematous, without exudates. External ears appear normal, without discharge. Mucous membranes moist. Eyes PERRLA, EOM intact. There is no scleral icterus. No pallor noted. IOP is average of 20 bilaterally. Mild amount of injection to lateral canthus of right eye. Flouresecne stain revealed small corneal abrasion at 9:00. No foreign body noted. Cardiopulmonary: RRR, no murmurs, rubs or gallops, no JVD noted. Lungs CTAB in anterior and posterior alarcon. No peripheral edema. Abdominal exam: Abdomen soft and non-distended. Abdomen non-tender to palpation in all 4 quadrants. Bowel sounds active in LLQ. No hepatosplenomegaly. No ecchymosis Neuro: CN II-XII grossly intact. No nuchal rigidity. No raccon eyes, no hernandez sign, no hemotympanum. No cervical spinal tenderness. MSK: No posterior calf tenderness bilaterally, homans sign negative bilaterally. Posterior tibialis and radial pulse +2 bilaterally. Sensation intact in upper and lower extremities. Full active ROM in upper and lower extremities, 5/5 stregnth. Limitations: no limitations Course Vital Signs 02/26/19 08:13 Temperature 97 F L Pulse Rate 56 L Respiratory 16 Rate Blood Pressure 112/86 O2 Sat by Pulse 98 Oximetry Medical Decision Making - Medical Decision Making 38-year-old male patient, no pertinent past medical history presents ED chief complaint of right eye pain. Patient's vital signs stable, afebrile. Physical exam revealed a small corneal abrasion. Patient be continued on tobramycin eyedrops. Patient will follow-up with ophthalmology tomorrow. Return to ER if condition worsens. Case discussed with Dr. Jeronimo Disposition Clinical Impression: Corneal abrasion Disposition: HOME SELF-CARE Condition: Stable Instructions (If sedation given, give patient instructions): Corneal Abrasion (ED) Additional Instructions: Patient to adhere to previously discussed treatment plan and will take medication(s) as directed. Patient to follow up with PCP in 1-2 days. Patient to return to ED if symptoms do not improve. Continue to use tobramycin eyedrops. Follow-up with transport analyst tomorrow. Return to ER if condition worsens. Is patient prescribed a controlled substance at d/c from ED?: No Referrals: Vinayak Salcido MD [Primary Care Provider] - 1-2 days Jyoti Iglesias MD [STAFF PHYSICIAN] - 1-2 days
[2019-02-26 11:40] VITALS: BP 100/60; PULSE 68; RESP 18
== END 2019-02-26 11:43 | disposition home or self-care (01) ==
LOC: EC 08:04
DX: S05.01XA Injury of conjunctiva and corneal abrasion without foreign body, right eye, initial encounter (principal); X58.XXXA Exposure to other specified factors, initial encounter
CPT/HCPCS: 99283

== ENCOUNTER 2019-08-25 20:48 | Emergency (ER) | payer MEDICARE ==
[2019-08-25 20:55] VITALS: BP 147/99; PULSE 83; RESP 18; TEMP 97.7
[2019-08-25] MEDS ORDERED: BUPIVACAINE (PF) 0.5% 30 ML VIAL MISCELLANE STA (21:46)
[2019-08-25] MEDS ORDERED: ACET/COD 300 MG/30 MG STARTER PACK 6 TAB BTL PO STA (21:46)
[2019-08-25] MEDS ORDERED: PENICILLIN VK 500MG STARTER 4 TAB BTL PO STA (21:46)
--- NOTE | 2019-08-25 22:19 | ED ---
General Adult HPI - General Chief complaint: Dental/Oral Stated complaint: Dental pain Time Seen by Provider: 08/25/19 20:58 Source: patient Mode of arrival: ambulatory Limitations: no limitations - History of Present Illness Initial comments: 39-year-old male patient presents to the emergency department today for evaluation of right upper dental pain. Patient states he does have a bad taste to the area. States the pain started 12 hours ago. He is reporting as a 10 out of 10 on the pain scale. Denies any trismus or difficulty swallowing. Denies fever or chills. Denies any facial swelling. Patient is unsure if he has dental insurance. - Related Data Previous Rx's Medication Instructions Recorded Albuterol Sulfate [Proair Hfa] 1 - 2 puff INHALATION Q4H PRN #1 01/28/19 inhaler Azithromycin [Zithromax Z-pack] 0 mg PO DIRECTED #1 pack 01/28/19 predniSONE 50 mg PO DAILY #5 tab 01/28/19 Ibuprofen [Motrin] 600 mg PO Q8HR PRN #30 tab 08/25/19 Penicillin V Potassium [Pen Vee K] 500 mg PO Q6H #40 tablet 08/25/19 Allergies Allergy/AdvReac Type Severity Reaction Status Date / Time No Known Allergies Allergy Verified 08/25/19 20:55 Review of Systems ROS Statement: Those systems with pertinent positive or pertinent negative responses have been documented in the HPI. ROS Other: All systems not noted in ROS Statement are negative. Past Medical History Past Medical History: No Reported History History of Any Multi-Drug Resistant Organisms: None Reported Past Surgical History: Hernia Repair Past Psychological History: No Psychological Hx Reported Smoking Status: Never smoker Past Alcohol Use History: None Reported Past Drug Use History: None Reported General Exam Limitations: no limitations General appearance: alert, in no apparent distress, other (This is a well- developed, well-nourished adult male patient in no acute distress. Vital signs upon presentation are temperature 97.7F, pulse 83, respirations 18, blood pressure 147/99, pulse ox 98% on room air.) Eye exam: Present: normal appearance, PERRL, EOMI. Absent: scleral icterus, conjunctival injection, periorbital swelling ENT exam: Present: normal oropharynx, mucous membranes moist, other (Broken tooth #1, exposed pulp. No surrounding gingival erythema or hyperplasia. No evidence of drainable abscess.) Neck exam: Absent: lymphadenopathy Respiratory exam: Present: normal lung sounds bilaterally. Absent: respiratory distress, wheezes, rales, rhonchi, stridor Cardiovascular Exam: Present: regular rate, normal rhythm, normal heart sounds. Absent: systolic murmur, diastolic murmur, rubs, gallop, clicks Neurological exam: Present: alert, oriented X3, CN II-XII intact Psychiatric exam: Present: normal affect, normal mood Skin exam: Present: warm, dry, intact, normal color. Absent: rash Course Vital Signs 08/25/19 20:54 Temperature 97.7 F Pulse Rate 83 Respiratory 18 Rate Blood Pressure 147/99 O2 Sat by Pulse 98 Oximetry Procedures - Nerve Block Consent Obtained: verbal consent Local Anesthetic Used: Marcaine 0.5% Amount of anesthesia used: 3 Side: right Intraoral Nerve Block: superior alveolar Procedure Successful: Yes Complications: none Patient Tolerated Procedure: well, no complications Medical Decision Making - Medical Decision Making 39-year-old male patient presents to the emergency department today for evaluation of right upper dental pain. Physical examination did reveal broken tooth #1. There is exposed pulp. No surrounding gingival erythema or hyperplasia. No evidence for drainable abscess. There is no trismus. He is afebrile. Did perform intraoral nerve block. Patient did have complete resolution of pain. He'll be discharged home with prescription for Pen-Vee K. He is instructed to take, Motrin for pain control. He is instructed to follow- up with dentistry for recheck as soon as possible. Return parameters were discussed in detail. He verbalizes understanding and agrees with this plan. Disposition Clinical Impression: Pain, dental Disposition: HOME SELF-CARE Condition: Good Additional Instructions: Complete penicillin prescription. Take pain medication sparingly as needed for severe pain. Take Motrin every 6-8 hours as needed. Follow-up with dentistry for recheck as soon as possible. HER primary care physician for recheck in 1-2 days. Return to the emergency department immediately for any new, worsening, or concerning symptoms. Please follow up with the [facility] dental clinic. [facility] [place] [address]. Phone number for new patients or [phone] for existing patients. [facility]. Must pay for x-rays then services are free. Call for an appoitnment. Prescriptions: Ibuprofen [Motrin] 600 mg PO Q8HR PRN #30 tab PRN Reason: Pain Penicillin V Potassium [Pen Vee K] 500 mg PO Q6H #40 tablet Is patient prescribed a controlled substance at d/c from ED?: No Referrals: Vinayak Salcido MD [Primary Care Provider] - 1-2 days Time of Disposition: 22:19
== END 2019-08-25 22:37 | disposition home or self-care (01) ==
LOC: EC 20:48
DX: S02.5XXA Fracture of tooth (traumatic), initial encounter for closed fracture (principal)
CPT/HCPCS: 64400; 99282